=== PATIENT | male | born 1930 | race Caucasian/White ===

== ENCOUNTER 2016-04-17 21:18 | Emergency (ER) | payer MEDICARE ==
[2016-04-17 21:29] VITALS: TEMP 98; BMI 26.3
--- NOTE | 2016-04-17 22:27 | EDPRACDOC ---
- General Information Chief Complaint: Lower Leg Pain Stated Complaint: RT LEG SWOLLEN/PAIN Time Seen by Provider: 04/17/16 21:44 Information Source: Patient, Family Home Medications: Home Medications Atorvastatin Calcium [Lipitor] 20 mg PO QHS 03/06/16 Diltiazem HCl [Cardizem Cd] 240 mg PO QHS 03/06/16 Enalapril Maleate [Vasotec] 20 mg PO QHS 03/06/16 Ergocalciferol (Vitamin D2) [Vitamin D2 (ergocalciferol)] 50,000 units PO Flores@ 0900 03/06/16 Ferrous Sulfate [Iron] 325 mg PO QHS 03/06/16 Furosemide [Lasix] 40 mg PO QHS 03/06/16 Metformin HCl 500 mg PO QHS 03/06/16 Nitroglycerin [Nitrostat] 0.4 mg SL Q5MX3 PRN 03/06/16 Oxycodone Immediate Release [Oxycodone Immediate Release (OxyIR)] 5 mg PO Q4H PRN #40 tab 03/13/16 L.acidoph & Paracasei,B.lactis [Probiotic] 1 cap PO DAILY 04/09/16 Psyllium Husk [Psyllium Fiber] 0.52 gm PO BID 04/09/16 Sennosides [Ex-Lax] 15 mg PO DIR PRN 04/09/16 Tamsulosin HCl [Flomax] 0.4 mg PO QHS 04/09/16 Amoxicillin/Potassium Clav [Augmentin 875-125 Tablet] 1 tab PO BID 04/17/16 Allergies/Adverse Reactions: Allergies Allergy/AdvReac Type Severity Reaction Status Date / Time No Known Allergies Allergy Verified 04/09/16 06:40 - History of Present Illness Onset: 3 days HPI: spontaneous swelling of the rle Circumstances: Reports: None (recent hospitalization x 2 in the past few mos.) Able to Bear Weight: Limited Associated Signs & Symptoms: Reports: Swelling. Denies: Fever ED Past Medical History - History Reviewed Yes Nurses notes reviewed and agree except as marked - Patient Medical History Cardiac History: Reports: Coronary Artery Disease, Hypertension, Heart Attack ( 1991. No stents placed and no coronary artery bypass graft. Dr. Ortiz), Hypercholesterolemia, Valvular Heart Disease Respiratory History: Reports: Pneumonia GI/ History: Reports: Gastroesophageal Reflux, BPH Musculoskeletal History: Reports: Arthritis, Osteoarthritis Psychological History: Reports: Anxiety. Denies: Depression, Substance Use Disorder Systemic History: Reports: Cancer (Prostate), Diabetes Surgical History: Reports: Tonsillectomy/Adnoidectomy (44 years old tonsillectomy), Other (right tkr, prostate surgery, tonsillectomy and adenoidectomy 44 years old) - Family Medical History Comment Only: Cancer (father - prostate) - Social Medical History Smoking Status: Never smoker Social History: Denies: Substance Use Disorder EDM Review of Systems - Review of Systems ROS Negative Except as Marked: Yes All systems reviewed and were negative except as marked - Physical Exam Constitutional: Alert (Awake), No apparent distress Oriented to: Time, Person, Place Last recorded Vital Signs: Last Vital Signs Temp 98 F 04/17/16 21:20 Pulse 65 04/17/16 21:47 Resp 18 04/17/16 21:47 BP 126/60 04/17/16 21:47 Pulse Ox 93 04/17/16 21:47 Oxygen Pulse Oxygen Saturation 93 O2 Device Room Air Oxygen Flow Rate Fraction of Inspired Oxygen ( FIO2) - HEENT Head: Normal ( normocephalic) Eye Exam: Normal (PERRL, EOMI, Sclera white) Oropharynx: Normal (Pharynx:Moist without exudate,Gums-no swelling) Tympanic Membrane: Normal ENT EAC: Normal TMJ: Normal Nose: No Symptoms Reported (septum midline) Neck: Normal (FROM, trachea at midline) - Respiratory/Cardiovascular Respiratory: Normal - CTA (BBS clear to auscultation without adventitious sounds ) Cardiovascular: Normal (RRR without murmur, gallop or rub) - GI Auscultation: Normal (NABS) Palpation: Normal (Soft,No rebound or guarding, non distended) Tenderness: Non tender Healy's Sign: Negative - Musculoskeletal Back: Normal (Non-Tender) Extremities: Edema, Pedal Edema, Pedal Pulse - Integumentary Skin: Normal, Warm, Dry. negative: Clammy, Flushed Lymphatics: Normal (no adenopathy) - Neurologic Memory Impaired: Normal Motor Function: Normal (Normal tone, Pulses 2+ No cyanosis or edema, FROM) Cranial Nerve: Normal (CN II-X11 intact sensation, strength 5/5) Cerebellar: Normal Mood Description: Normal Perception: Normal - Results 01/02/17 22:23 Decision Time to Discharge: 23:45 - Departure Yes I personally saw and evaluated the patient. Disposition: Home Condition: Good Final Diagnosis: Swelling of right lower extremity Instructions: Deep Venous Thrombosis (ED) Education/Counseling Given To: Patient, Family Member Education/Counseling Given Regarding: Diagnosis, Treatment, Prognosis Additional Instructions: Return here tomorrow at 7:00 AM for doppler study
[2016-04-17 22:32] LABS: AUTOMATED BASOPHIL 0.4 % (0-2); AUTOMATED EOSINOPHIL 1.7 % (0-5); AUTOMATED LYMPH 17.6 % (17-44); AUTOMATED MONOCYTE 7.1 % (3-10); AUTOMATED NEUTROPHIL 73.2 % (45-76); MPV 7.2 fL (7.4-10.4)
[2016-04-17 22:38] LABS: PT-INR 1.1
[2016-04-17] MEDS ORDERED: Enoxaparin 1 mg per kg per dose SQ ONE (23:44)
[2016-04-17] MEDS ORDERED: ENOXAPARIN 100 MG PFS SQ ONE (23:49)
[2016-04-18 00:15] VITALS: BP 119/59; PULSE 60
== END 2016-04-18 00:13 | disposition home or self-care (01) ==
LOC: ED 21:18
DX: M79.89 Other specified soft tissue disorders (principal); I25.10 Atherosclerotic heart disease of native coronary artery without angina pectoris; I10 Essential (primary) hypertension; E78.00 Pure hypercholesterolemia, unspecified; E11.9 Type 2 diabetes mellitus without complications; K21.9 Gastro-esophageal reflux disease without esophagitis; F41.9 Anxiety disorder, unspecified; Z79.899 Other long term (current) drug therapy
CPT/HCPCS: 36415; 85025; 85610; 96372; 99284; J1650

== ENCOUNTER 2016-04-18 09:41 | Emergency (ER) | payer MEDICARE ==
[2016-04-18 10:30] VITALS: TEMP 98.3; BMI 25.9
[2016-04-18 10:56] LABS: AUTOMATED BASOPHIL 0.6 % (0-2); AUTOMATED EOSINOPHIL 1.2 % (0-5); AUTOMATED LYMPH 13.8 % (17-44); AUTOMATED MONOCYTE 5.4 % (3-10); MPV 7.3 fL (7.4-10.4)
[2016-04-18 11:12] LABS: BLOOD UREA NITROGEN 11 MG/DL (9-20); CALC CORRECTED 9.3 MG/DL (8.4-10.2); CALCIUM 8.5 MG/DL (8.4-10.2); CALCULATED OSMOLALITY 260 MOs/Kg (270-290); CHLORIDE 97 mEq/L (98-107); GLUCOSE 154 MG/DL (70-99); SODIUM LEVEL 134 mEq/L (137-146); TOTAL PROTEIN 5.9 G/DL (6.3-8.2)
--- NOTE | 2016-04-18 13:04 | EDPRACDOC ---
- General Information Chief Complaint: Lower Leg Pain Stated Complaint: RT LEG PAIN/ SWOLLEN Time Seen by Provider: 04/18/16 10:51 Information Source: Patient, Family Home Medications: Home Medications Atorvastatin Calcium [Lipitor] 20 mg PO QHS 03/06/16 Diltiazem HCl [Cardizem Cd] 240 mg PO QHS 03/06/16 Enalapril Maleate [Vasotec] 20 mg PO QHS 03/06/16 Ergocalciferol (Vitamin D2) [Vitamin D2 (ergocalciferol)] 50,000 units PO Flores@ 0900 03/06/16 Ferrous Sulfate [Iron] 325 mg PO QHS 03/06/16 Furosemide [Lasix] 40 mg PO QHS PRN 03/06/16 Metformin HCl 500 mg PO QHS 03/06/16 Nitroglycerin [Nitrostat] 0.4 mg SL Q5MX3 PRN 03/06/16 Oxycodone Immediate Release [Oxycodone Immediate Release (OxyIR)] 5 mg PO Q4H PRN #40 tab 03/13/16 L.acidoph & Paracasei,B.lactis [Probiotic] 1 cap PO DAILY 04/09/16 Psyllium Husk [Psyllium Fiber] 0.52 gm PO BID 04/09/16 Sennosides [Ex-Lax] 15 mg PO DIR PRN 04/09/16 Tamsulosin HCl [Flomax] 0.4 mg PO QHS 04/09/16 POTASSIUM CHLORIDE Tablet [Klor-Con M20] 20 meq PO DAILY #30 tab 04/18/16 Allergies/Adverse Reactions: Allergies Allergy/AdvReac Type Severity Reaction Status Date / Time No Known Allergies Allergy Verified 04/09/16 06:40 - History of Present Illness Onset: 2 MONTHS ED Past Medical History - Patient Medical History Cardiac History: Reports: Coronary Artery Disease, Hypertension, Heart Attack ( 1991. No stents placed and no coronary artery bypass graft. Dr. Ortiz), Hypercholesterolemia, Valvular Heart Disease Respiratory History: Reports: Pneumonia GI/ History: Reports: Gastroesophageal Reflux, BPH Musculoskeletal History: Reports: Arthritis, Osteoarthritis Psychological History: Reports: Anxiety. Denies: Depression, Substance Use Disorder Systemic History: Reports: Cancer (Prostate), Diabetes Surgical History: Reports: Tonsillectomy/Adnoidectomy (44 years old tonsillectomy), Other (right tkr, prostate surgery, tonsillectomy and adenoidectomy 44 years old). Denies: Cholecystectomy (DRAINAGE TUBE 04/12/16) - Family Medical History Comment Only: Cancer (father - prostate) - Social Medical History Smoking Status: Never smoker Social History: Denies: Substance Use Disorder - Physical Exam Last recorded Vital Signs: Last Vital Signs Temp 98.3 F 04/18/16 10:27 Pulse 62 04/18/16 11:45 Resp 20 04/18/16 11:45 BP 95/49 L 04/18/16 11:45 Pulse Ox 95 04/18/16 11:45 Oxygen Pulse Oxygen Saturation 95 O2 Device Room Air Oxygen Flow Rate Fraction of Inspired Oxygen ( FIO2) - Results 04/18/16 10:36 04/18/16 10:36 WBC 9.2 xk/uL (3.8-10.8) 04/18/16 10:36 RBC 3.30 xM/uL (4.70-6.10) L 04/18/16 10:36 Hgb 10.2 g/dL (14.0-18.0) L 04/18/16 10:36 Hct 30.3 % (42-52) L 04/18/16 10:36 MCV 92 fL (80-94) 04/18/16 10:36 MCH 30.9 pg (27-32) 04/18/16 10:36 MCHC 33.7 g/dl (33-36) 04/18/16 10:36 RDW 14.8 % (11.5-14.5) H 04/18/16 10:36 Plt Count 397 xk/uL (130-400) 04/18/16 10:36 MPV 7.3 fL (7.4-10.4) L 04/18/16 10:36 Neut % (Auto) 79.0 % (45-76) H 04/18/16 10:36 Lymph % (Auto) 13.8 % (17-44) L 04/18/16 10:36 [place] % (Auto) 5.4 % (3-10) 04/18/16 10:36 Eos % (Auto) 1.2 % (0-5) 04/18/16 10:36 Baso % (Auto) 0.6 % (0-2) 04/18/16 10:36 Absolute Neuts (auto) 7.27 xk/uL (1.7-8.2) 04/18/16 10:36 Absolute Lymphs (auto) 1.20 xk/uL (0.65-4.75) 04/18/16 10:36 Sodium 134 mEq/L (137-146) L 04/18/16 10:36 Potassium 2.7 mEq/L (3.5-5.1) L 04/18/16 10:36 Chloride 97 mEq/L (98-107) L 04/18/16 10:36 Carbon Dioxide 22 mMOL/L (22-33) 04/18/16 10:36 Anion Gap 18 mEq/L (8-16) H 04/18/16 10:36 BUN 11 MG/DL (9-20) 04/18/16 10:36 Creatinine 0.80 MG/DL (0.66-1.25) 04/18/16 10:36 Estimated GFR (MDRD) > 60 mL/min (>=60) 04/18/16 10:36 Glucose 154 MG/DL (70-99) H 04/18/16 10:36 Calculated Osmolality 260 MOs/Kg (270-290) L 04/18/16 10:36 Lactic Acid 2.5 mEq/L (0.7-2.1) H 04/18/16 11:17 Calcium 8.5 MG/DL (8.4-10.2) 04/18/16 10:36 Corrected Calcium 9.3 MG/DL (8.4-10.2) 04/18/16 10:36 Total Bilirubin 1.0 MG/DL (0.2-1.3) 04/18/16 10:36 AST 50 IU/L (17-59) 04/18/16 10:36 ALT 43 IU/L (21-72) 04/18/16 10:36 Alkaline Phosphatase 95 IU/L (50-160) 04/18/16 10:36 Total Protein 5.9 G/DL (6.3-8.2) L 04/18/16 10:36 Albumin 3.2 G/DL (3.5-5.0) L 04/18/16 10:36 Lab Results 04/18/16 04/18/16 04/18/16 11:17 10:36 10:36 WBC 9.2 RBC 3.30 L Hgb 10.2 L Hct 30.3 L MCV 92 MCH 30.9 MCHC 33.7 RDW 14.8 H Plt Count 397 MPV 7.3 L Neut % (Auto) 79.0 H Lymph % (Auto) 13.8 L [place] % (Auto) 5.4 Eos % (Auto) 1.2 Baso % (Auto) 0.6 Absolute Neuts (auto) 7.27 Absolute Lymphs (auto) 1.20 Sodium 134 L Potassium 2.7 L Chloride 97 L Carbon Dioxide 22 Anion Gap 18 H BUN 11 Creatinine 0.80 Estimated GFR (MDRD) > 60 Glucose 154 H Calculated Osmolality 260 L Lactic Acid 2.5 H Calcium 8.5 Corrected Calcium 9.3 Total Bilirubin 1.0 AST 50 ALT 43 Alkaline Phosphatase 95 Total Protein 5.9 L Albumin 3.2 L - Diagnostic Imaging Leg Image interpreted by: Radiologist Patient Name: GRETEL HOWE LOC: ED : 1930 AGE: 86 Order Date:04/18/16 Date of Service:06/30 Report # [id number] Ord Physician: Reva Raman MD Exam # [id number] Emergency Physician: Reva Raman MD Exam(s): [id number] US/US EXTREM LOW VENOUS - R CLINICAL DATA: 86-year-old male with 3 day history of right lower extremity swelling. Recent right hip surgery. EXAM: RIGHT LOWER EXTREMITY VENOUS DOPPLER ULTRASOUND TECHNIQUE: Domingo-scale sonography with graded compression, as well as color Doppler and duplex ultrasound were performed to evaluate the lower extremity deep venous systems from the level of the common femoral vein and including the common femoral, femoral, profunda femoral, popliteal and calf veins including the posterior tibial, peroneal and gastrocnemius veins when visible. The superficial great saphenous vein was also interrogated. Spectral Doppler was utilized to evaluate flow at rest and with distal augmentation maneuvers in the common femoral, femoral and popliteal veins. COMPARISON: Prior bilateral lower extremity duplex venous ultrasound 04/09/2016 FINDINGS: Contralateral Common Femoral Vein: Respiratory phasicity is normal and symmetric with the symptomatic side. No evidence of thrombus. Normal compressibility. Common Femoral Vein: No evidence of thrombus. Normal compressibility, respiratory phasicity and response to augmentation. Saphenofemoral Junction: No evidence of thrombus. Normal compressibility and flow on color Doppler imaging. Profunda Femoral Vein: No evidence of thrombus. Normal compressibility and flow on color Doppler imaging. Femoral Vein: No evidence of thrombus. Normal compressibility, respiratory phasicity and response to augmentation. Popliteal Vein: No evidence of thrombus. Normal compressibility, respiratory phasicity and response to augmentation. Calf Veins: No evidence of thrombus. Normal compressibility and flow on color Doppler imaging. Superficial Great Saphenous Vein: No evidence of thrombus. Normal compressibility and flow on color Doppler imaging. Venous Reflux: None. Other Findings: None. IMPRESSION: No evidence of deep venous thrombosis. Electronically Signed By: Vin Qiu M.D. On: 04/18/2016 13:43 Electronically Signed By: Vin Qiu MD Electronically Signed Date/Time: 346 Dictate Date/Time: 04/18/16 1342 Technologist: Nahomy Weems Transcribed By: Sebastien Transcribed Date/Time: 04/18/16 1343 - Departure Disposition: Home Condition: Stable Final Diagnosis: Peripheral edema, Hypokalemia Education/Counseling Given To: Patient Education/Counseling Given Regarding: Diagnosis, Treatment, Prognosis Referrals: Kelsey Tamez MD [Primary Care Provider] - As Needed Prescriptions: POTASSIUM CHLORIDE Tablet [Klor-Con M20] 20 meq PO DAILY #30 tab
--- NOTE | 2016-04-18 13:46 | DIRPT ---
CLINICAL DATA: 86-year-old male with 3 day history of right lower extremity swelling. Recent right hip surgery. EXAM: RIGHT LOWER EXTREMITY VENOUS DOPPLER ULTRASOUND TECHNIQUE: Domingo-scale sonography with graded compression, as well as color Doppler and duplex ultrasound were performed to evaluate the lower extremity deep venous systems from the level of the common femoral vein and including the common femoral, femoral, profunda femoral, popliteal and calf veins including the posterior tibial, peroneal and gastrocnemius veins when visible. The superficial great saphenous vein was also interrogated. Spectral Doppler was utilized to evaluate flow at rest and with distal augmentation maneuvers in the common femoral, femoral and popliteal veins. COMPARISON: Prior bilateral lower extremity duplex venous ultrasound 04/09/2016 FINDINGS: Contralateral Common Femoral Vein: Respiratory phasicity is normal and symmetric with the symptomatic side. No evidence of thrombus. Normal compressibility. Common Femoral Vein: No evidence of thrombus. Normal compressibility, respiratory phasicity and response to augmentation. Saphenofemoral Junction: No evidence of thrombus. Normal compressibility and flow on color Doppler imaging. Profunda Femoral Vein: No evidence of thrombus. Normal compressibility and flow on color Doppler imaging. Femoral Vein: No evidence of thrombus. Normal compressibility, respiratory phasicity and response to augmentation. Popliteal Vein: No evidence of thrombus. Normal compressibility, respiratory phasicity and response to augmentation. Calf Veins: No evidence of thrombus. Normal compressibility and flow on color Doppler imaging. Superficial Great Saphenous Vein: No evidence of thrombus. Normal compressibility and flow on color Doppler imaging. Venous Reflux: None. Other Findings: None. IMPRESSION: No evidence of deep venous thrombosis. Electronically Signed By: Vin Qiu M.D. On: 04/18/2016 13:43
[2016-04-18 16:02] VITALS: BP 115/58; PULSE 58
== END 2016-04-18 16:03 | disposition home or self-care (01) ==
LOC: ED 09:41
DX: R60.9 Edema, unspecified (principal); E87.6 Hypokalemia; F41.9 Anxiety disorder, unspecified; E11.9 Type 2 diabetes mellitus without complications; I25.10 Atherosclerotic heart disease of native coronary artery without angina pectoris; I10 Essential (primary) hypertension; E78.00 Pure hypercholesterolemia, unspecified; K21.9 Gastro-esophageal reflux disease without esophagitis; N40.0 Benign prostatic hyperplasia without lower urinary tract symptoms; Z79.899 Other long term (current) drug therapy
CPT/HCPCS: 36415; 80053; 83605; 85025; 93005; 99284